=== PATIENT | male | born 1955 | race Hispanic/Latino ===

== ENCOUNTER 2018-10-30 06:35 | Day surgery (SDC) | payer OTHER ==
[2018-10-27 10:31] LABS: BASOPHILS % (AUTO) 0.8 % (0.0-5.0); EOSINOPHILS % (AUTO) 2.9 % (0.0-8.0); LYMPHOCYTES % (AUTO) 31.9 % (21.0-51.0); MEAN CORPUSCULAR HEMOGLOBIN 27.7 pg (27.0-33.0); MEAN CORPUSCULAR HGB CONC 33.9 g/dL (32.0-36.0); MEAN CORPUSCULAR VOLUME 81.7 fL (79-99); MONOCYTES % (AUTO) 9.9 % (3.0-13.0); NEUTROPHILS % (AUTO) 54.5 % (40.0-77.0); PLATELET COUNT (AUTO) 309 K/uL (130-400); RED BLOOD CELL COUNT(AUTO) 4.52 MIL/uL (4.50-6.20); RED CELL DISTRIBUTION WIDTH 13.9 % (11.0-15.5); WHITE BLOOD COUNT (AUTO) 7.4 K/uL (4.8-10.8)
[2018-10-27 10:39] VITALS: BP 147/66
[2018-10-27 10:57] LABS: CREATININE 0.9 mg/dL (0.5-1.5); POTASSIUM 4.4 mmol/L (3.5-5.1)
[2018-10-30] VITALS (16 sets, daily range): BP systolic 106–135; BP diastolic 45–80
[~2018-10-30] VITALS: Ht 175.3 cm; Wt 94.8 kg
[~2018-10-30 06:35] MED LIST: CEFAZOLIN SODIUM 1 GM VIAL IVP SCH; CYAN-35 PO; LISI10TA7 PO; METF-446 PO; ROSU20TA31 PO; TAMS-1 PO
[2018-10-30] MEDS ORDERED: SODIUM CHLORIDE 0.9% 1000ML 1,000 ML IV ONE (06:59)
[2018-10-30] MEDS ORDERED: BUPIVACAINE/PF 0.25% 30ML VIAL IJ ONE (07:39)
[2018-10-30] MEDS: CEFAZOLIN SODIUM 1 GM VIAL ONE ×2 (07:42→08:25)
[2018-10-30] MEDS ORDERED: ONDANSETRON HCL 4 MG/2 ML VIAL ONE (08:24)
[2018-10-30] MEDS ORDERED: MIDAZOLAM HCL 1 MG/ML 2ML VIAL ONE (08:24)
[2018-10-30] MEDS ORDERED: DEXAMETHASONE SOD PHOSPHATE 10MG/ML 1ML VIAL ONE (08:24)
[2018-10-30] MEDS ORDERED: FENTANYL CITRATE PF 50 MCG/1 ML 2ML VIAL ONE ×2 (08:24→08:46)
[2018-10-30] MEDS ORDERED: PROPOFOL 10 MG/ML 20ML VIAL IV ONE ×2 (08:24→08:45)
[2018-10-30] MEDS ORDERED: LIDOCAINE PF 2% 5ML ABBOJECT ONE (08:24)
[2018-10-30] MEDS ORDERED: EPHEDRINE SULFATE 50 MG/ML AMPULE ONE (08:34)
--- NOTE | 2018-10-30 10:30 | NUR ---
POST-PROCEDURE RECEIVED FROM RR BY TRIXIE MONTIEL VIA STRETCHER S/P RIGHT CTR. AWAKE IN NO ACUTE DISTRESS. DENIES PAIN. CONNECTED TO CONTINUOUS CARDIOPULMONARY MONITORING. SIDE RAILS UP X2, STRETCHER IN LOWEST POSITION, CALL LIGHT W/IN REACH.
--- NOTE | 2018-10-30 11:05 | NUR ---
ACTIVITY UP TO EDGE OF BED. TOLERATED W/O C/O NAUSEA OR DIZZINESS.
--- NOTE | 2018-10-30 11:14 | NUR ---
DISCHARGE DAY PT DISCHARGE INSTRUCTION SHEET, MED REC, AND PT EDUCATION REVIEWED WITH PT AND FAMILY. EDUCATED TO KEEP DRESSING CLEAN, DRY, AND INTACT UNTIL SEEN BY DR. AVITIA, KEEP HAND ELEVATED, AND NEW MEDICATIONS INCLUDING KEFLEX AND TYLENOL #3. PT VERBALIZED UNDERSTANDING. OPPORTUNITY GIVEN TO ASK QUESTION. NO QUESTIONS OR CONCERNS VOICED.
--- NOTE | 2018-10-30 11:17 | NUR ---
DISCHARGE DISCHARGED VIA W/C. AWAKE IN NO ACUTE DISTRESS. DRESSING TO RIGHT HAND CLEAN, DRY, AND INTACT/SLING IN PLACE.
== END 2018-10-30 11:17 | disposition home or self-care (01) ==
LOC: DAH 06:35
PROVIDERS: ATTEND Orthopaedic Surgery
DX: G56.01 Carpal tunnel syndrome, right upper limb (principal); E11.9 Type 2 diabetes mellitus without complications; E78.5 Hyperlipidemia, unspecified; F32.9 Major depressive disorder, single episode, unspecified; K21.9 Gastro-esophageal reflux disease without esophagitis; E66.9 Obesity, unspecified; F15.90 Other stimulant use, unspecified, uncomplicated; Z79.84 Long term (current) use of oral hypoglycemic drugs; Z79.899 Other long term (current) drug therapy; Z86.010 Personal history of colon polyps; Z68.30 Body mass index [BMI] 30.0-30.9, adult; Z88.8 Allergy status to other drugs, medicaments and biological substances; Z83.3 Family history of diabetes mellitus; Z82.49 Family history of ischemic heart disease and other diseases of the circulatory system
CPT/HCPCS: 36415; 64721; 80048; 82948 ×2; 85025; A4215; A4649; A4930; A6223; J0690; J1100; J2001; J2250; J2405; J2704 ×2; J3010 ×2; J3490 ×2; J7030

== ENCOUNTER 2020-08-08 09:00 | Inpatient (IN) | payer OTHER ==
[~2020-08-08] VITALS: Ht 172.7 cm; Wt 96.3 kg
[2020-08-08 11:29] LABS: BASOPHILS % (AUTO) 0.7 % (0.0-5.0); EOSINOPHILS % (AUTO) 1.5 % (0.0-8.0); HEMATOCRIT 34.6 % (42-54); LYMPHOCYTES % (AUTO) 37.6 % (21.0-51.0); MEAN CORPUSCULAR HEMOGLOBIN 26.2 pg (27.0-33.0); MEAN CORPUSCULAR HGB CONC 32.1 g/dL (32.0-36.0); MEAN CORPUSCULAR VOLUME 81.8 fL (79-99); MONOCYTES % (AUTO) 10.3 % (3.0-13.0); NEUTROPHILS % (AUTO) 49.6 % (40.0-77.0); PLATELET COUNT (AUTO) 324 K/uL (130-400); RED BLOOD CELL COUNT(AUTO) 4.23 MIL/uL (4.50-6.20); RED CELL DISTRIBUTION WIDTH 13.2 % (11.0-15.5); WHITE BLOOD COUNT (AUTO) 5.9 K/uL (4.8-10.8)
[2020-08-12 13:26] VITALS: BP 143/70
[2020-08-12] MEDS ORDERED: GLIP5TAB11 PO (13:51)
[2020-08-12] MEDS ORDERED: AMLO2.5T4 PO (13:51)
[2020-08-12] MEDS ORDERED: METF-446 PO (13:51)
[2020-08-12] MEDS ORDERED: TAMS-1 PO (13:51)
[2020-08-12] MEDS ORDERED: ROSU40TA21 PO (13:51)
[2020-08-13] VITALS (23 sets, daily range): BP systolic 127–156; BP diastolic 68–84
[2020-08-13] MEDS: CEFAZOLIN SODIUM 1 GM VIAL IVP SCH ×3 (06:00→17:29)
[2020-08-13] MEDS ORDERED: 0.9%NACL 1000ML 1,000 ML IV ONE (07:35)
[2020-08-13] MEDS ORDERED: CELECOXIB 200 MG CAP ONE (08:17)
[2020-08-13] MEDS ORDERED: METOCLOPRAMIDE 10 MG/2 ML VIAL ONE (08:17)
[2020-08-13] MEDS ORDERED: ACETAMINOPHEN 500 MG TABLET ONE (08:17)
[2020-08-13] MEDS ORDERED: KETOROLAC 15MG/ML VIAL (15MG/ML) ONE (08:17)
[2020-08-13] MEDS ORDERED: TRANEXAMIC ACID 1000MG/10ML ONE ×2 (08:23→13:41)
[2020-08-13] MEDS ORDERED: CEFAZOLIN SODIUM 1 GM VIAL ONE ×2 (08:23→17:27)
[2020-08-13] MEDS ORDERED: LIDOCAINE PF 100MG/5ML (2%) SYRINGE 5ML ONE (08:55)
[2020-08-13] MEDS ORDERED: SUCCINYLCHOLINE CHLORIDE 20 MG/ML 10 ML VIAL ONE (08:55)
[2020-08-13] MEDS ORDERED: ONDANSETRON 4MG INJ ONE (08:56)
[2020-08-13] MEDS ORDERED: PROPOFOL 10 MG/ML 20ML VIAL IV ONE ×2 (08:57→11:12)
[2020-08-13] MEDS ORDERED: ROCURONIUM 10MG/1ML SYR 10 MG/ML ML ONE ×2 (08:57→11:12)
[2020-08-13] MEDS ORDERED: FENTANYL CITRATE PF 50 MCG/1 ML 2ML VIAL ONE ×2 (08:58→13:11)
[2020-08-13] MEDS ORDERED: MIDAZOLAM HCL 1 MG/ML 2ML VIAL ONE (08:59)
[2020-08-13] MEDS ORDERED: KETAMINE 50MG/ML SYRINGE 50 MG/ML DISP.SYRIN IV ONE (09:07)
[2020-08-13] MEDS ORDERED: ROPIVACAINE 0.5% 5MG/ML 30ML IJ ONE (09:07)
[2020-08-13] MEDS ORDERED: MEPERIDINE-PF 25 MG/ML SYG ONE ×3 (11:13→13:58)
[2020-08-13] MEDS ORDERED: CEFAZOLIN SODIUM 1 GM VIAL IRRIG ONE (11:24)
[2020-08-13] MEDS ORDERED: DEXAMETHASONE SOD PHOSPHATE 10MG/ML 1ML VIAL ONE (11:40)
[2020-08-13] MEDS ORDERED: GLYCOPYRROLATE 1 MG/5 ML SYRINGE ONE (13:12)
[2020-08-13] MEDS ORDERED: NEOSTIGMINE 5MG/5ML SYR IV ONE (13:12)
[2020-08-13] MEDS ORDERED: LIDOCAINE HCL-MPF 1% 2ML VIAL IV PRN (13:15)
[2020-08-13] MEDS ORDERED: ONDANSETRON 4MG INJ IVP PRN (13:15)
[2020-08-13] MEDS ORDERED: DiphenhydrAMINE HCL 50 MG/ML VIAL IVP PRN (13:15)
[2020-08-13] MEDS: ACETAMINOPHEN 500 MG TABLET PO SCH ×2 (13:15→21:14)
[2020-08-13] MEDS: 0.9%NACL 1000ML 1,000 ML IV SCH ×2 (13:15→22:56)
[2020-08-13] MEDS ORDERED: TEMAZEPAM 15 MG CAPSULE PO PRN (13:15)
[2020-08-13] MEDS ORDERED: POTASSIUM CHLORIDE 10% ELIXIR 20 MEQ/15 ML UDCUP PO PRN (13:15)
[2020-08-13] MEDS ORDERED: CALCIUM CARB 500MG PO PRN (13:15)
[2020-08-13] MEDS ORDERED: KCL 20 MEQ ERTAB PO PRN (13:15)
[2020-08-13] MEDS ORDERED: POTASSIUM CHLORIDE 20MEQ/100ML 100 ML IV PRN (13:15)
[2020-08-13] MEDS ORDERED: TRAMADOL HCL 50 MG TABLET PO PRN (13:15)
[2020-08-13] MEDS: INSULIN HUMULIN R 100 UNIT/ML 3ML SQ SCH ×2 (17:25→21:00)
[2020-08-13] MEDS: OXYCODONE HCL 5 MG TAB PO PRN (17:40)
[2020-08-13] MEDS: ROSUVASTATIN CALCIUM 40 MG PO SCH (21:00)
[2020-08-13] MEDS: ASPIRIN 81MG CHEW TAB PO SCH (21:08)
[2020-08-13] MEDS: PREGABALIN 25 MG CAP PO SCH (21:09)
[2020-08-13] MEDS: CELECOXIB 200 MG CAP PO SCH (21:09)
[2020-08-13] MEDS: TAMSULOSIN HCL 0.4 MG CAP.ER.24H PO SCH (21:09)
[2020-08-13] MEDS: FAMOTIDINE 20MG TAB PO SCH (21:09)
[2020-08-13] MEDS: KETOROLAC 15MG/ML VIAL (15MG/ML) IV PRN (21:13)
[2020-08-14] VITALS (7 sets, daily range): BP systolic 112–128; BP diastolic 43–72
[2020-08-14] MEDS: CEFAZOLIN SODIUM 1 GM VIAL IVP SCH (01:37)
[2020-08-14] MEDS: OXYCODONE HCL 5 MG TAB PO PRN ×5 (01:38→17:52)
[2020-08-14 03:35] LABS: HEMATOCRIT 27.4 % (42-54); MEAN CORPUSCULAR HEMOGLOBIN 26.3 pg (27.0-33.0); MEAN CORPUSCULAR HGB CONC 32.5 g/dL (32.0-36.0); MEAN CORPUSCULAR VOLUME 81.1 fL (79-99); RED BLOOD CELL COUNT(AUTO) 3.38 MIL/uL (4.50-6.20); RED CELL DISTRIBUTION WIDTH 13.4 % (11.0-15.5); WHITE BLOOD COUNT (AUTO) 8.3 K/uL (4.8-10.8)
[2020-08-14 03:44] LABS: CREATININE 0.9 mg/dL (0.5-1.5)
[2020-08-14] MEDS: ACETAMINOPHEN 500 MG TABLET PO SCH ×3 (05:38→19:46)
[2020-08-14] MEDS: INSULIN HUMULIN R 100 UNIT/ML 3ML SQ SCH ×4 (06:09→19:48)
[2020-08-14] MEDS: GLIPIZIDE 5 MG TABLET PO SCH ×2 (06:21→17:46)
[2020-08-14] MEDS ORDERED: TAMSULOSIN HCL 0.4 MG CAP.ER.24H PO SCH (09:00)
[2020-08-14] MEDS: FERROUS FUMARATE 324 MG TABLET PO PRN (09:11)
[2020-08-14] MEDS: PREGABALIN 25 MG CAP PO SCH ×2 (09:11→19:46)
[2020-08-14] MEDS: FAMOTIDINE 20MG TAB PO SCH ×2 (09:12→19:47)
[2020-08-14] MEDS: AMLODIPINE 2.5 MG TAB PO SCH (09:12)
[2020-08-14] MEDS: POLYETHYLENE GLYCOL 3350 17 GM POWD.PACK PO SCH (09:12)
[2020-08-14] MEDS: ASPIRIN 81MG CHEW TAB PO SCH ×2 (09:12→19:46)
[2020-08-14] MEDS: 0.9%NACL 1000ML 1,000 ML IV SCH (09:12)
[2020-08-14] MEDS: CELECOXIB 200 MG CAP PO SCH ×2 (09:12→19:47)
[2020-08-14] MEDS: METFORMIN HCL 500 MG TABLET PO SCH ×2 (09:13→17:46)
[2020-08-14] MEDS: TAMSULOSIN HCL 0.4 MG CAP.ER.24H PO SCH (19:47)
[2020-08-14] MEDS: KETOROLAC 15MG/ML VIAL (15MG/ML) IV PRN (19:48)
[2020-08-14] MEDS: ROSUVASTATIN CALCIUM 40 MG PO SCH (20:48)
[2020-08-15] MEDS: ACETAMINOPHEN 500 MG TABLET PO SCH ×3 (04:23→20:38)
[2020-08-15 04:39] VITALS: BP 140/80
[2020-08-15] MEDS: INSULIN HUMULIN R 100 UNIT/ML 3ML SQ SCH ×4 (05:57→20:34)
[2020-08-15] MEDS: GLIPIZIDE 5 MG TABLET PO SCH ×2 (06:12→17:56)
[2020-08-15 08:00] VITALS: BP 148/70
[2020-08-15] MEDS: METFORMIN HCL 500 MG TABLET PO SCH ×2 (08:16→17:57)
[2020-08-15] MEDS: OXYCODONE HCL 5 MG TAB PO PRN ×3 (08:17→20:37)
[2020-08-15] MEDS: FAMOTIDINE 20MG TAB PO SCH ×2 (09:21→20:37)
[2020-08-15] MEDS: ASPIRIN 81MG CHEW TAB PO SCH ×2 (09:21→20:37)
[2020-08-15] MEDS: CELECOXIB 200 MG CAP PO SCH ×2 (09:21→20:38)
[2020-08-15] MEDS: PREGABALIN 25 MG CAP PO SCH ×2 (09:21→20:37)
[2020-08-15] MEDS: AMLODIPINE 2.5 MG TAB PO SCH (09:22)
[2020-08-15] MEDS: POLYETHYLENE GLYCOL 3350 17 GM POWD.PACK PO SCH (09:22)
[2020-08-15 11:49] VITALS: BP 140/60
[2020-08-15 16:00] VITALS: BP 132/70
[2020-08-15 20:22] VITALS: BP 163/85
[2020-08-15] MEDS: TAMSULOSIN HCL 0.4 MG CAP.ER.24H PO SCH (20:37)
[2020-08-15] MEDS: ROSUVASTATIN CALCIUM 40 MG PO SCH (20:40)
[2020-08-16 00:13] VITALS: BP 119/65
[2020-08-16 04:00] VITALS: BP 153/72
[2020-08-16] MEDS: ACETAMINOPHEN 500 MG TABLET PO SCH ×2 (06:06→11:55)
[2020-08-16] MEDS: GLIPIZIDE 5 MG TABLET PO SCH ×2 (06:06→17:25)
[2020-08-16] MEDS: INSULIN HUMULIN R 100 UNIT/ML 3ML SQ SCH ×3 (06:15→16:30)
[2020-08-16] MEDS: POLYETHYLENE GLYCOL 3350 17 GM POWD.PACK PO SCH (07:59)
[2020-08-16] MEDS: CELECOXIB 200 MG CAP PO SCH (07:59)
[2020-08-16] MEDS: PREGABALIN 25 MG CAP PO SCH (07:59)
[2020-08-16] MEDS: ASPIRIN 81MG CHEW TAB PO SCH (07:59)
[2020-08-16] MEDS: AMLODIPINE 2.5 MG TAB PO SCH (07:59)
[2020-08-16 08:00] VITALS: BP 146/71
[2020-08-16] MEDS: FAMOTIDINE 20MG TAB PO SCH (08:00)
[2020-08-16] MEDS: METFORMIN HCL 500 MG TABLET PO SCH ×2 (08:00→17:25)
[2020-08-16] MEDS: OXYCODONE HCL 5 MG TAB PO PRN (08:00)
[2020-08-16] MEDS: FERROUS FUMARATE 324 MG TABLET PO PRN (11:54)
[2020-08-16 12:00] VITALS: BP 148/67
[2020-08-16] MEDS ORDERED: BISACODYL 10 MG SUPP.RECT RC PRN (13:15)
[2020-08-16 16:00] VITALS: BP 162/78
== END 2020-08-16 18:11 | DRG 469 ==
LOC: EDSTATUS 09:00 → DAHIP 08-13 06:30 → 4AH 08-13 14:09
PROVIDERS: ADMIT Orthopaedic Surgery; ATTEND Orthopaedic Surgery
PROC: 0SRC0J9 Replacement of Right Knee Joint with Synthetic Substitute, Cemented, Open Approach (ICD-10-PCS; principal; 2020-08-13 10:12)
DX: M17.11 Unilateral primary osteoarthritis, right knee (principal); U07.1 COVID-19; E78.5 Hyperlipidemia, unspecified; D64.9 Anemia, unspecified; E11.9 Type 2 diabetes mellitus without complications; F32.9 Major depressive disorder, single episode, unspecified; G56.03 Carpal tunnel syndrome, bilateral upper limbs; M54.30 Sciatica, unspecified side; M65.30 Trigger finger, unspecified finger; Z88.8 Allergy status to other drugs, medicaments and biological substances; Z86.010 Personal history of colon polyps; Z86.16 Personal history of COVID-19; Z87.19 Personal history of other diseases of the digestive system
CPT/HCPCS: 36415; 80048; 82948; 85025; 85027; 87641; 88305; 88311; 96374; 96375; 97039; A4606; G0378; J0330; J0690; J1100; J1885; J2001; J2175; J2250; J2405; J2704; J2710; J2765; J2795; J3010; J3490; J7030; J7120; U0003

== ENCOUNTER 2021-05-14 06:12 | Day surgery (SDC) | payer OTHER ==
[2021-05-13 11:23] VITALS: BP 135/63
[2021-05-13 11:29] LABS: BASOPHILS % (AUTO) 0.7 % (0.0-5.0); EOSINOPHILS % (AUTO) 2.4 % (0.0-8.0); HEMATOCRIT 34.4 % (42-54); LYMPHOCYTES % (AUTO) 33.1 % (21.0-51.0); MEAN CORPUSCULAR HEMOGLOBIN 26.3 pg (27.0-33.0); MEAN CORPUSCULAR HGB CONC 32.3 g/dL (32.0-36.0); MEAN CORPUSCULAR VOLUME 81.5 fL (79-99); MONOCYTES % (AUTO) 10.3 % (3.0-13.0); NEUTROPHILS % (AUTO) 53.2 % (40.0-77.0); PLATELET COUNT (AUTO) 344 K/uL (130-400); RED BLOOD CELL COUNT(AUTO) 4.22 MIL/uL (4.50-6.20); RED CELL DISTRIBUTION WIDTH 13.7 % (11.0-15.5); WHITE BLOOD COUNT (AUTO) 5.8 K/uL (4.8-10.8)
[2021-05-13 11:46] LABS: CREATININE 0.7 mg/dL (0.5-1.5); POTASSIUM 4.6 mmol/L (3.5-5.1)
[~2021-05-14] VITALS: Ht 172.7 cm; Wt 94.0 kg
[2021-05-14] VITALS (15 sets, daily range): BP systolic 117–143; BP diastolic 57–72
[~2021-05-14 06:12] MED LIST changes: +ASCO500T20 PO; -CEFAZOLIN SODIUM 1 GM VIAL IVP SCH; -CYAN-35 PO; +EMPA25TA PO; +FERR-72 PO; +GLIP10TA9 PO; -LISI10TA7 PO; +MULT-1367 PO; -ROSU20TA31 PO; +ROSU40TA21 PO; +VIT1CAPS47 PO
[2021-05-14] MEDS ORDERED: 0.9%NACL 1000ML 1,000 ML IV ONE (06:42)
[2021-05-14] MEDS ORDERED: CEFAZOLIN SODIUM 1 GM VIAL ONE ×3 (06:42→11:13)
[2021-05-14] MEDS ORDERED: BUPIVACAINE/PF 0.5% 30ML VIAL ONE (07:34)
[2021-05-14] MEDS: CEFAZOLIN SODIUM 2 GM VIAL IV SCH ×2 (07:45→08:35)
[2021-05-14] MEDS ORDERED: LIDOCAINE PF 100MG/5ML (2%) SYRINGE 5ML ONE (08:24)
[2021-05-14] MEDS ORDERED: SUCCINYLCHOLINE 200MG/10ML SYR ONE (08:24)
[2021-05-14] MEDS ORDERED: FENTANYL CITRATE PF 50 MCG/1 ML 2ML VIAL ONE (08:25)
[2021-05-14] MEDS ORDERED: MIDAZOLAM HCL 1 MG/ML 2ML VIAL ONE (08:25)
[2021-05-14] MEDS ORDERED: PROPOFOL 10 MG/ML 20ML VIAL IV ONE (08:25)
[2021-05-14] MEDS ORDERED: EPHEDRINE SULFATE 50 MG/ML AMPULE ONE (08:52)
[2021-05-14] MEDS ORDERED: ROCURONIUM 10MG/1ML SYR 10 MG/ML ML ONE (08:56)
[2021-05-14] MEDS ORDERED: GLYCOPYRROLATE 1 MG/5 ML SYRINGE ONE (09:22)
[2021-05-14] MEDS ORDERED: NEOSTIGMINE 5MG/5ML SYR IV ONE (09:22)
[2021-05-14] MEDS ORDERED: ACET1TAB25 PO (09:43)
[2021-05-14] MEDS ORDERED: CEPH500B PO (09:43)
== END 2021-05-14 11:10 | disposition home or self-care (01) ==
LOC: DAH 06:12
PROVIDERS: ATTEND Orthopaedic Surgery
DX: G56.02 Carpal tunnel syndrome, left upper limb (principal); Z20.822 Contact with and (suspected) exposure to COVID-19; I10 Essential (primary) hypertension; E78.5 Hyperlipidemia, unspecified; E11.9 Type 2 diabetes mellitus without complications; F32.9 Major depressive disorder, single episode, unspecified; D64.9 Anemia, unspecified; Z98.890 Other specified postprocedural states; Z79.899 Other long term (current) drug therapy
CPT/HCPCS: 36415; 64721; 80048; 82948 ×2; 85025; 87426; 93005; A4215 ×2; A4221; A4222; A4223; A4565; A4649; A4663; A4930; A5120; A6223; J0330; J0690 ×3; J2001; J2250; J2704; J2710; J3010; J3490 ×3; J7030 ×2

== ENCOUNTER 2024-01-24 10:40 | Emergency (ER) | payer OTHER, MEDICARE ==
[~2024-01-24] VITALS: Ht 172.7 cm; Wt 94.8 kg
[~2024-01-24 10:40] MED LIST changes: +ACET-2079 PO; +CEPH500B PO; -ROSU40TA21 PO; +ROSU40TA88 PO
[2024-01-24 10:53] VITALS: BP 140/68; PULSE 85; RESP 20; TEMP 98.8; O2SAT 99
[2024-01-24] MEDS: LIDOCAINE HCL 1% 20 ML VIAL INJ SCH (11:18)
[2024-01-24] MEDS: NEOMY SULF/BACITRA/POLYMYXIN B 1 EACH PACKET TP ONE (11:18)
[2024-01-24] MEDS: cePHALexin 500 MG CAPSULE PO ONE (11:19)
[2024-01-24] MEDS: teTANUS/diphthERIA TOXOID [ADULT] 0.5 ML VIAL IM ONE (11:21)
[2024-01-24] MEDS ORDERED: CEPH500T PO (11:44)
[2024-01-24] MEDS ORDERED: MUPI22O TP (11:44)
== END 2024-01-24 11:50 | disposition home or self-care (01) ==
LOC: EDH 10:40
DX: S91.141A Puncture wound with foreign body of right great toe without damage to nail, initial encounter (principal); E11.9 Type 2 diabetes mellitus without complications; E78.00 Pure hypercholesterolemia, unspecified; Z79.84 Long term (current) use of oral hypoglycemic drugs; Z79.899 Other long term (current) drug therapy; Z88.8 Allergy status to other drugs, medicaments and biological substances; Z98.890 Other specified postprocedural states; W22.8XXA Striking against or struck by other objects, initial encounter; Y93.01 Activity, walking, marching and hiking; Y92.89 Other specified places as the place of occurrence of the external cause; Y99.8 Other external cause status
CPT/HCPCS: 73630; 90471; 90714